=== PATIENT | female | born 1980 | race African-American/Black ===

== ENCOUNTER 2016-11-01 20:17 | Emergency (ER) | payer SELFPAY ==
[2016-11-01] MEDS ORDERED: PENICILLIN V POTASSIUM 500 MG TABLET PO ONE (21:24)
[2016-11-01] MEDS ORDERED: HYDROCODONE/ACETAMINOPHEN 5-325 MG TABLET PO ONE (21:24)
--- NOTE | 2016-11-01 21:28 | ER Document Report ---
ED Oral Problem - General Chief Complaint: Toothache Stated Complaint: TOOTH PAIN Time Seen by Provider: 11/01/16 20:53 Mode of Arrival: Ambulatory Information source: Patient Notes: 6-year-old female presented to ED for complaint of dental pain to tooth #31. She states it is been hurting for about 3 days tonight. She states she took Motrin about 330 this afternoon with no relief. She states she is from [place] and she will not be gone home until . She denies any past medical history except for dental surgery in the . TRAVEL OUTSIDE OF THE U.S. IN LAST 30 DAYS: No - HPI Patient complains to provider of: Toothache Onset: Other - 3 days Onset: Gradual Quality of pain: Sharp, Throbbing Severity: Moderate Pain Level: 4 Associated symptoms: Toothache Worsened by: Cold Relieved by: Nothing Similar symptoms previously: Yes Recently seen / treated by doctor/dentist: No Past Medical History - General Information source: Patient Last Menstrual Period: unknown - Social History Smoking Status: Never Smoker Cigarette use (# per day): No Chew tobacco use (# tins/day): No Frequency of alcohol use: None Drug Abuse: None Occupation: spanish teacher Lives with: Family Family History: Arthritis, DM, Hyperlipidemia, Hypertension, Malignancy, Thyroid Disfunction. denies: CAD, COPD, CVA Patient has suicidal ideation: No Patient has homicidal ideation: No - Past Medical History Cardiac Medical History: Reports: None Pulmonary Medical History: Reports: None EENT Medical History: Reports: None Neurological Medical History: Reports: None Endocrine Medical History: Reports: None Renal/ Medical History: Reports: None Malignancy Medical History: Reports: None GI Medical History: Reports: None Musculoskeltal Medical History: Reports None Skin Medical History: Reports None Psychiatric Medical History: Reports: None Traumatic Medical History: Reports: None Infectious Medical History: Reports: None Past Surgical History: Reports: Hx Section, Hx Oral Surgery - Immunizations Immunizations up to date: Yes Hx Diphtheria, Pertussis, Tetanus Vaccination: Yes Review of Systems - Review of Systems Constitutional: No symptoms reported EENT: Dental problem Cardiovascular: No symptoms reported Respiratory: No symptoms reported Gastrointestinal: No symptoms reported Genitourinary: No symptoms reported Female Genitourinary: No symptoms reported Musculoskeletal: No symptoms reported Skin: No symptoms reported Hematologic/Lymphatic: No symptoms reported Neurological/Psychological: No symptoms reported -: Yes All other systems reviewed and negative Physical Exam - Vital signs Vitals: Temp Pulse Resp BP Pulse Ox 98.3 F 82 16 134/77 H 100 11/01/16 20:22 11/01/16 20:22 11/01/16 20:22 11/01/16 20:22 11/01/16 20:22 Interpretation: Normal - General General appearance: Appears well, Alert - HEENT Head: Normocephalic, Atraumatic Eyes: Normal Pupils: PERRL Ears: Normal External canal: Normal Tympanic membrane: Normal Sinus: Normal Nasal: Normal Mouth/Lips: Caries Mucous membranes: Normal Teeth diagram: 1 - Redness to the surrounding gum tenderness to the tooth cavity and the tooth Pharynx: Normal Neck: Normal - Respiratory Respiratory status: No respiratory distress Chest status: Nontender Breath sounds: Normal Chest palpation: Normal - Cardiovascular Rhythm: Regular Heart sounds: Normal auscultation Murmur: No - Abdominal Inspection: Normal Distension: No distension Bowel sounds: Normal Tenderness: Nontender Organomegaly: No organomegaly - Back Back: Normal, Nontender - Extremities General upper extremity: Normal inspection, Nontender, Normal color, Normal ROM , Normal temperature General lower extremity: Normal inspection, Nontender, Normal color, Normal ROM , Normal temperature, Normal weight bearing. No: Jeanna's sign - Neurological Neuro grossly intact: Yes Cognition: Normal Orientation: AAOx4 Alonso Coma Scale Eye Opening: Spontaneous [place] Coma Scale Verbal: Oriented [place]onso Coma Scale Motor: Obeys Commands [place] Coma Scale Total: 15 Speech: Normal Motor strength normal: LUE, RUE, LLE, RLE Sensory: Normal - Psychological Associated symptoms: Normal affect, Normal mood - Skin Skin Temperature: Warm Skin Moisture: Dry Skin Color: Normal Course - Re-evaluation Re-evalutation: 11/01/16 21:41 Patient treated with Penicillin VK and Falkner and instructed to follow-up with dentist as soon as she returns home to [place]. - Vital Signs Vital signs: Temp Pulse Resp BP Pulse Ox 98.3 F 82 18 134/77 H 100 11/01/16 20:52 11/01/16 20:52 11/01/16 20:52 11/01/16 20:52 11/01/16 20:52 Discharge - Discharge Clinical Impression: Pain due to dental caries Condition: Stable Disposition: HOME, SELF-CARE Additional Instructions: TOOTHACHE: Your pain is due to dental decay. The tooth must be repaired in order for you to feel better. You will, therefore, be referred to a dentist. We do not have dentists on the staff at [facility]. Severe swelling or drainage around a tooth usually means a dental abscess. This also requires evaluation and treatment by the dentist, but antibiotics may be prescribed while awaiting dental treatment. You should be rechecked immediately if you develop major swelling of the face, increasing pain, a lump in the jaw or gums, headache, difficulty swallowing, or fever. ORAL NARCOTIC MEDICATION: You have been given a prescription for pain control. This medication is a narcotic. It's best taken with food, as nausea can result if taken on an empty stomach. Don't operate machinery or drive within six hours of taking this medication. Do not combine this medicine with alcohol, or with any medication which can cause sedation (such as cold tablets or sleeping pills) unless you get permission from the physician. Narcotics tend to cause constipation. If possible, drink plenty of fluids and eat a diet high in fiber and fruits. Please be aware that prescription narcotics also have the potential for abuse. People become addicted to these medications because of the general sense of wellbeing that they induce. This feeling along with a significant reduction in tension, anxiety, and aggression provides a stimulating seductive quality to these drugs. Once your pain is under control, we encourage you to discard your unused narcotics. PENICILLIN V K: You have been given a prescription for Penicillin VK. Your physician has determined that this is the best antibiotic for your condition. Pen VK can be taken with meals, however more of the antibiotic gets into the bloodstream if it's taken on an empty stomach. Penicillin usually has no side effects. However, allergy to penicillins is common. If you have had an allergic reaction to any drug of the penicillin family, you should never take any other penicillin. Notify your doctor at once if you develop hives, itching, swelling, faintness, or shortness of breath. Call a dentist [facility] in your hometown and schedule an appointment for as soon as you return home to have this tooth pulled or fixed. FOLLOW-UP CARE: You have been referred for follow-up care to the dentists listed below. Call the dentists office for an appointment as you were instructed or within the next two days. If you experience worsening or a significant change in your symptoms, notify the physician immediately or return to the Emergency Department at any time for re-evaluation. [facility] [address] [place], [place] Thursday mornings, by appointment [facility] [address] [place] [address] [facility] [address] [facility] [address] [facility] [address] [email or web address] [facility] [address] [place] [address] Thursday- 8:00am to 5:00 pm Will see patients from other [facility]. Charges based on income and family size and accepts Medicare, Medicaid, and Insurances Will pull molars COUNTS INCLUDE 234 BEDS AT THE [facility] [address] Hours of Operation 8:00 am - 4:30 pm weekdays The following dental offices accept Medicaid: [facility] Dr. Brown Dr. Mata Dr. Barnes Dr. Floyd Tian Tavera Lutsavage, and Nathaly oral surgery Dr. Joseph ([place]) Dr. Beckford ([place]) [facility] Drs. Ramos and Meliton ([place]) Dr. Staples ([place]) [facility] Dr. Shahid ([place]) Drs. Dwyer and ([place]) Medicaid Care Line Prescriptions: Hydrocodone/Acetaminophen [Falkner 5-325 mg Tablet] 1 tab PO Q6HP PRN #14 tablet PRN Reason: Penicillin V Potassium [Penicillin Vk 500 mg Tablet] 500 mg PO BID #20 tablet Forms: Elevated Blood Pressure
[2016-11-01 21:38] VITALS: BP 112/73
== END 2016-11-01 21:38 | disposition home or self-care (01) ==
LOC: ER 20:17
DX: K02.9 Dental caries, unspecified (principal)
CPT/HCPCS: 99282

== ENCOUNTER 2016-11-23 09:28 | Emergency (ER) | payer BC ==
[2016-11-23 09:33] VITALS: BP 121/77
--- NOTE | 2016-11-23 09:39 | ER Document Report ---
HPI - HPI Pain Level: 4 Notes: Patient is a 36-year-old female presents the ED complaining of low back spasming left greater than the right 2 days. Patient states that she feels a tightness when she moves in a soreness in her low back. Laying down makes the pain worse. The pain does not radiate. Patient states that when she is moving throughout the day it does improve her symptoms. Patient states that she is still able to ambulate without any difficulties. She denies any loss of control of bowel or bladder, numbness/tingling, saddle anesthesia, muscle paralysis/weakness, or urinary retention. Patient states that she still eating and drinking without any difficulties. Denies any recent illness, sick contacts , or travel. Denies any significant past medical history. Denies any drug allergies or daily medications. Patient denies any smoking or illicit drug use. Patient denies any injections or procedures to her low back. Denies any fever, headache, URI, sore throat, chest pain, palpitations, syncope, cough, wheeze, shortness of breath, neck pain/stiffness, abdominal pain, nausea/ vomiting/diarrhea, dysuria, hematuria, flank pain, or rash. - ROS Notes: REVIEW OF SYSTEMS: CONSTITUTIONAL : Denies fever, chills, or sweats. Denies recent illness. EENT: Denies eye, ear, throat, or mouth pain or symptoms. Denies nasal or sinus congestion or discharge. Denies throat, tongue, or mouth swelling or difficulty swallowing. CARDIOVASCULAR: Denies chest pain. Denies palpitations or racing or irregular heart beat. Denies ankle edema. RESPIRATORY: Denies cough, cold, or chest congestion. Denies shortness of breath, difficulty breathing, or wheezing. GASTROINTESTINAL: Denies abdominal pain or distention. Denies nausea, vomiting , or diarrhea. Denies blood in vomitus, stools, or per rectum. Denies black, tarry stools. Denies constipation. GENITOURINARY: Denies difficulty urinating, painful urination, burning, frequency, blood in urine, or discharge. FEMALE GENITOURINARY: Denies vaginal bleeding, heavy or abnormal periods, irregular periods. Denies vaginal discharge or odor. MUSCULOSKELETAL: see hpi SKIN: Denies rash, lesions or sores. NEUROLOGICAL: Denies confusion or altered mental status. Denies passing out or loss of consciousness. Denies dizziness or lightheadedness. Denies headache. Denies weakness or paralysis or loss of use of either side. Denies problems with gait or speech. Denies sensory loss, numbness, or tingling. ALL OTHER SYSTEMS REVIEWED AND NEGATIVE. Dictation was performed using [facility] voice recognition software - DERM Skin Color: Normal Past Medical History - Social History Smoking Status: Never Smoker Family History: Arthritis, DM, Hyperlipidemia, Hypertension, Malignancy, Thyroid Disfunction. denies: CAD, COPD, CVA Patient has suicidal ideation: No Patient has homicidal ideation: No Renal/ Medical History: Denies: Hx Peritoneal Dialysis Past Surgical History: Reports: Hx Section, Hx Oral Surgery - Immunizations Immunizations up to date: Yes Hx Diphtheria, Pertussis, Tetanus Vaccination: Yes Vertical Provider Document - CONSTITUTIONAL Agree With Documented VS: Yes Notes: PHYSICAL EXAMINATION: GENERAL: Well-appearing, well-nourished and in no acute distress. NECK: Normal range of motion, supple without lymphadenopathy LUNGS: Breath sounds clear to auscultation bilaterally and equal. No wheezes rales or rhonchi. HEART: Regular rate and rhythm without murmurs, rubs, gallops. ABDOMEN: Soft, nontender, nondistended abdomen. No guarding, no rebound. No masses appreciated. Normal bowel sounds present. No CVA tenderness bilaterally. No pulsatile mass Musculoskeletal: LE's b/l: FROM to passive/active. Strength 5+/5. Back: FROM to passive/active. Strength 5+/5. SLR neg b/l. No step-offs, deformities noted. No ecchymosis. + mild left L-paraspinal tenderness/spasm. No SI jt tenderness. Heel-toe walking normal. N/V intact. Patient was visualized sitting comfortably on the exam bed with her legs crossed and bent. Patient was able to perform all commands without any discomfort or deficits. Extremities: No cyanosis, clubbing, or edema b/l. Peripheral pulses 2+. Capillary refill less than 3 seconds. NEUROLOGICAL: Normal speech, normal gait. Normal sensory, motor exams PSYCH: Normal mood, normal affect. SKIN: Warm, Dry, normal turgor, no rashes or lesions noted. - INFECTION CONTROL TRAVEL OUTSIDE OF THE [place] IN LAST 30 DAYS: No - RESPIRATORY O2 Sat by Pulse Oximetry: 98 Course - Re-evaluation Re-evalutation: 11/23/16 09:53 Patient is an afebrile, well-hydrated, 36-year-old female presents the ED with low back pain, suspect possible back strain/muscle spasming. Vitals are stable. PE otherwise unremarkable for any focal neurological deficits. No other red flag symptoms at this time. Low suspicion for any meningitis, fracture, expanding/ruptured AAA, cauda equina syndrome, epidural mass lesion/ abscess, herniated disc causing severe spinal stenosis, or other systemic infection at this time. Patient is aware that his condition can change from initial presentation and that he needs monitor symptoms closely for any acute changes. I will send her home with Voltaren gel and baclofen. Lidoderm patch was applied today. Patient was persistent on having a narcotic for her symptoms. Patient also states that ibuprofen and Tylenol do not work. I explained to the patient that her current condition does not warrant a narcotic as I suspect it is an inflammation issue and that she has received, 3 narcotic medications already in November. Reiterated to the patient that she needs to follow -up with her primary care in a few days such that she can get a consult with physical therapy as I believe that this will help overall. Consider consult with orthopedics as well. Recheck with your PCM in 2-3 days. Return to ED with any worsening/concerning symptoms as reviewed in discharge. Patient is in agreement. - Vital Signs Vital signs: Temp Pulse Resp BP Pulse Ox 98.6 F 101 H 16 121/77 98 11/23/16 09:32 11/23/16 09:32 11/23/16 09:32 11/23/16 09:32 11/23/16 09:32 Discharge - Discharge Clinical Impression: Back strain Qualifiers: Encounter type: initial encounter Qualified Code(s): S39.012A - Strain of muscle, fascia and tendon of lower back, initial encounter Condition: Stable Disposition: HOME, SELF-CARE Instructions: Ice Packs ([facility]), Low Back Pain ([facility]), Muscle Strain ([facility]), Warm Packs ([facility]), Stretching Exercises for the Back ([facility]) Additional Instructions: Rest, Ice take meds as directed Tylenol/ibuprofen as needed Light stretches daily Strength exercises as able Moist heat and massage may help F/u with your PCP in 2-3 days for a recheck Consider consult(s) with Physical therapy/Orthopedics for ongoing/worsening symptoms Return to the ED with any worsening symptoms and/or development of fever, headache, chest pain, palpitations, syncope, shortness of breath, trouble breathing, abdominal pain, n/v/d, blood in stool/urine, loss of control of bowel /bladder, urinary retention, muscle weakness/paralysis, saddle anesthesia, numbness/tingling, or other worsening symptoms that are concerning to you. Prescriptions: Baclofen [Baclofen 10 mg Tablet] 5 mg PO BID PRN #10 tablet PRN Reason: Diclofenac Sodium [Voltaren] 4 gm TP QID PRN #100 gel..gm. PRN Reason:
[2016-11-23] MEDS ORDERED: LIDOCAINE 5% (700 MG) TRANSDERMAL ADH..PATCH TP ONE (09:48)
== END 2016-11-23 10:21 | disposition home or self-care (01) ==
LOC: ER 09:28
DX: S39.012A Strain of muscle, fascia and tendon of lower back, initial encounter (principal); X58.XXXA Exposure to other specified factors, initial encounter; Z82.61 Family history of arthritis
CPT/HCPCS: 99283